=== PATIENT | male | born 1990 | race Caucasian/White ===

== ENCOUNTER → 2022-07-22 | Outpatient (CLI) | payer OTHER | LOC: US 11:41 | PROVIDERS: ATTEND Urology | DX: N45.1 Epididymitis (principal) | CPT/HCPCS: 76870; 93976 ==

== ENCOUNTER → 2022-08-13 | Outpatient (CLI) | payer OTHER ==
[~2022-08-13] MED LIST: BIOTIN1 MG PO; OMEGA 3 1,0001 EACH PO
== END ==
LOC: US 14:53
PROVIDERS: ATTEND Urology
DX: D40.11 Neoplasm of uncertain behavior of right testis (principal); N45.1 Epididymitis
CPT/HCPCS: 71260; 74177; 76870; 93976

== ENCOUNTER → 2022-08-16 | Day surgery (SDC) | payer OTHER ==
[~2022-08-16] MED LIST changes: +ACETAMINOPHEN 1000 MG/100 ML 100 ML IV ONE; +ACETAMINOPHEN/CODEINE 300MG - 30MG TAB ONE; +BUPIVACAINE 0.25% 30ML SDV ONE; +BUPIVACAINE HCL 0.5% INJ 30 ML VIAL INJ ONE; +DEXAMETHASONE SOD PHOS INJ 4 MG/ML SDV ONE; +FENTANYL CITRATE/PF 100MCG/2 ML INJ ONE; +LIDOCAINE HCL 2% LOCAL 20 ML VIAL ONE; +LIDOCAINE HCL 2% LOCAL INJ 5 ML SDV VIAL INJ ONE; +MEPERIDINE HCL INJ 25 MG/ML VIAL ONE; +ONDANSETRON HCL INJ 2MG/ML 2ML 2 MG/ML VIAL ONE; +POVIDONE IODINE 0.05% 0.05 % ML PO ONE; +PROPOFOL IV EMULSION 10 MG/ML 20 ML VIAL ONE; +SEVOFLURANE INHAL SOLN 250 ML PEN BTL ONE
[2022-08-16 11:35] VITALS: BP 136/87
== END | disposition home or self-care (01) ==
LOC: OR 07:29
PROVIDERS: ATTEND Urology
DX: C62.91 Malignant neoplasm of right testis, unspecified whether descended or undescended (principal); R59.0 Localized enlarged lymph nodes; N39.0 Urinary tract infection, site not specified; N45.1 Epididymitis; I86.1 Scrotal varices; R35.1 Nocturia; F17.290 Nicotine dependence, other tobacco product, uncomplicated
CPT/HCPCS: 54530; 88309; 88342; C1713; J0131; J0690; J1100; J2001 ×2; J2175; J2405; J2704; J3010; 88304

== ENCOUNTER → 2022-08-27 | Outpatient (CLI) | payer OTHER ==
[~2022-08-27] MED LIST changes: -ACETAMINOPHEN 1000 MG/100 ML 100 ML IV ONE; -ACETAMINOPHEN/CODEINE 300MG - 30MG TAB ONE; -BUPIVACAINE 0.25% 30ML SDV ONE; -BUPIVACAINE HCL 0.5% INJ 30 ML VIAL INJ ONE; -DEXAMETHASONE SOD PHOS INJ 4 MG/ML SDV ONE; -FENTANYL CITRATE/PF 100MCG/2 ML INJ ONE; +FUROSEMIDE INJ 10 MG/ML 4 ML VIAL ONE; -LIDOCAINE HCL 2% LOCAL 20 ML VIAL ONE; -LIDOCAINE HCL 2% LOCAL INJ 5 ML SDV VIAL INJ ONE; -MEPERIDINE HCL INJ 25 MG/ML VIAL ONE; -ONDANSETRON HCL INJ 2MG/ML 2ML 2 MG/ML VIAL ONE; -POVIDONE IODINE 0.05% 0.05 % ML PO ONE; -PROPOFOL IV EMULSION 10 MG/ML 20 ML VIAL ONE; -SEVOFLURANE INHAL SOLN 250 ML PEN BTL ONE
== END ==
LOC: NM 13:28
PROVIDERS: ATTEND Urology
DX: N13.30 Unspecified hydronephrosis (principal)
CPT/HCPCS: 78708; A9562; J1940